=== PATIENT | male | born 1985 | race Caucasian/White ===

== ENCOUNTER 2017-07-25 07:34 | Emergency (ER) | payer BC ==
[~2017-07-25] VITALS: Ht 177.8 cm; Wt 106.8 kg
[~2017-07-25 07:34] MED LIST: MOTRIN800 MG PO; NORCO 5/3251 TABLET PO; TYLENOL REGULA325 MG PO
[2017-07-25] MEDS ORDERED: FIORICET 50-301 EAC1 PO (11:15)
[2017-07-25 11:31] VITALS: BP 123/78
== END 2017-07-25 12:01 | disposition home or self-care (01) ==
LOC: EME 07:34
DX: S09.8XXA Other specified injuries of head, initial encounter (principal); W00.0XXA Fall on same level due to ice and snow, initial encounter; Y99.0 Civilian activity done for income or pay; F17.200 Nicotine dependence, unspecified, uncomplicated
CPT/HCPCS: 70450; 99281; 99284